=== PATIENT | female | born 1950 | race Caucasian/White ===

== ENCOUNTER 2019-01-15 05:40 | Day surgery (SDC) | payer OTHER ==
[2019-01-15] MEDS ORDERED: MIDAZOLAM 1 MG/ML 2 ML INJ (07:58)
[2019-01-15] MEDS ORDERED: FENTAnyl 50 MCG/ML VIAL (07:58)
== END 2019-01-15 11:37 | disposition home or self-care (01) ==
LOC: GIL 05:40
DX: K29.50 Unspecified chronic gastritis without bleeding (principal); E11.9 Type 2 diabetes mellitus without complications; Z79.84 Long term (current) use of oral hypoglycemic drugs
CPT/HCPCS: 43239; 82962; 88305; 88312